=== PATIENT | male | born 2000 | race Two or more races ===

== ENCOUNTER 2021-04-25 22:01 | Emergency (ER) | payer MEDICAID ==
[~2021-04-25] VITALS: Ht 182.9 cm; Wt 59.9 kg
[2021-04-26] MEDS ORDERED: HYDROcodone-ACET 5/325MG TAB PO ONE (01:45)
[2021-04-26 03:00] VITALS: BP 128/72
== END 2021-04-26 03:05 | disposition short-term general hospital (02) ==
LOC: ER 22:01
DX: S52.301A Unspecified fracture of shaft of right radius, initial encounter for closed fracture (principal); S52.601A Unspecified fracture of lower end of right ulna, initial encounter for closed fracture; W18.39XA Other fall on same level, initial encounter; Y93.89 Activity, other specified; Y92.89 Other specified places as the place of occurrence of the external cause; Y99.8 Other external cause status
CPT/HCPCS: 73110